=== PATIENT | male | born 1990 | race Caucasian/White ===

== ENCOUNTER 2018-07-20 07:33 | Emergency (ER) | payer OTHER ==
[~2018-07-20] VITALS: Ht 175.3 cm; Wt 77.1 kg
[~2018-07-20 07:33] MED LIST: CLIN300 PO; Cleocin HCl150 MG PO; DIPATR PO; Omeprazole20 M1 PO; PENVK500 PO; Peridex480 ML SS; Ultram50 MG PO; Veetids 500500 MG PO
[2018-07-20 08:23] LABS: Source, Urine Clean Catch
[2018-07-20 08:31] LABS: Bilirubin, Urine Neg (Neg); Blood, Urine Neg (Neg); Glucose Qualitative, Urine Neg (Neg); Ketones, Urine Neg (Neg); Leukocyte Esterase, Urine 1+ (Neg); Nitrite, Urine Neg (Neg); Protein, Urine Neg (Neg); Specific Gravity, Urine 1.015 (1.003-1.022); Urobilinogen, Urine NORM (Normal)
[2018-07-20 08:39] LABS: Appearance, Urine Clear (Clear); Color, Urine Yellow (P-Yellow)
[2018-07-20 08:42] LABS: Bacteria Rare /hpf; Red Blood Cells, Urine 0-2 /hpf (0-2); Squamous Epithelial Cells Not Seen /hpf (Few)
[2018-07-20] MEDS ORDERED: Cyclobenzaprine5 MG PO (09:00)
== END 2018-07-20 09:10 | disposition home or self-care (01) ==
LOC: ER 07:33
PROVIDERS: Emergency Medicine
DX: S39.011A Strain of muscle, fascia and tendon of abdomen, initial encounter (principal); X58.XXXA Exposure to other specified factors, initial encounter; Z91.030 Bee allergy status; Z79.899 Other long term (current) drug therapy; G40.909 Epilepsy, unspecified, not intractable, without status epilepticus; Z87.891 Personal history of nicotine dependence
CPT/HCPCS: 81001; 87086; 96372; 99283-25; J1885

== ENCOUNTER 2019-08-07 14:20 | Emergency (ER) | payer OTHER ==
[~2019-08-07] VITALS: Ht 175.3 cm; Wt 78.9 kg
[~2019-08-07 14:20] MED LIST changes: +Cyclobenzaprine5 MG PO
[2019-08-07] MEDS ORDERED: NAPR220 (14:46)
[2019-08-07] MEDS ORDERED: IBUP800 PO (15:25)
[2019-08-07] MEDS ORDERED: PENVK250 PO (15:25)
[2019-08-07] MEDS ORDERED: Ultram50 MG PO (15:25)
== END 2019-08-07 15:35 | disposition home or self-care (01) ==
LOC: ER 14:20
DX: K02.9 Dental caries, unspecified (principal); Z91.030 Bee allergy status; Z87.891 Personal history of nicotine dependence
CPT/HCPCS: 99282

== ENCOUNTER 2024-11-07 21:17 | Emergency (ER) | payer OTHER ==
[~2024-11-07] VITALS: Ht 175.3 cm; Wt 61.2 kg
[~2024-11-07 21:17] MED LIST changes: +Bactrim Ds Tab1 EACH PO; +CEPH500 PO; +IBUP800 PO; +NAPR220; +PENVK250 PO
[2024-11-07 21:43] VITALS: BP 126/92
== END 2024-11-07 22:15 | disposition home or self-care (01) ==
LOC: ER 21:17
DX: T63.461A Toxic effect of venom of wasps, accidental (unintentional), initial encounter (principal); L53.0 Toxic erythema; G40.909 Epilepsy, unspecified, not intractable, without status epilepticus; Z91.030 Bee allergy status; Z88.0 Allergy status to penicillin; Z79.899 Other long term (current) drug therapy; Z87.891 Personal history of nicotine dependence
CPT/HCPCS: 99282; A9270